=== PATIENT | female | born 1955 | race Caucasian/White ===

== ENCOUNTER 2017-07-31 10:13 | Emergency (ER) | payer OTHER ==
[~2017-07-31] VITALS: Ht 152.4 cm; Wt 111.1 kg
[2017-07-31 11:04] LABS: EOSINOPHIL (%) 0 % (0-5); HEMATOCRIT 38.8 % (36.0-46.0); IMMATURE GRANULOCYTE (%) 0.4 % (0.0-0.7); INSTRUMENT ABS NEUTROPHIL CT 3.8 K/uL; MCHC 32.2 G/DL (30.0-36.0); MCV 99.2 FL (83-99); MEAN PLAT.VOLUME 10.5 uM^3 (9.5-12.4); MONOCYTE (%) 10.5 % (3-12); MONOCYTE COUNT 0.6 K/uL (0-0.8); NEUTROPHIL (%) 69.6 % (45-76); NEUTROPHIL COUNT 3.8 K/uL (1.8-6.4); PLATELET COUNT 134 K/uL (156-360); RBC DIS.WIDTH-CV 13.3 % (11.8-14.6); RBC DIS.WIDTH-SD 49.1 % (39-53); RED BLOOD COUNT 3.91 M/uL (3.80-5.20); WHITE BLOOD COUNT 5.4 K/uL (4.1-10.2)
[2017-07-31 11:17] LABS: CHLORIDE 106 mEq/L (99-109); POTASSIUM 4.1 mEq/L (3.7-5.4); SODIUM 142 mEq/L (136-147)
[2017-07-31 11:19] LABS: GLUCOSE 77 mg/dL (70-99); PROTHROMBIN TIME 11.3 SEC (10.2-12.9)
[2017-07-31 11:20] LABS: ANION GAP 7 MEQ/L (2-14)
[2017-07-31 11:22] LABS: GFR ESTIMATE (CALCULATED) > 59 mL/min/; PTT 25.7 SEC (25-37)
[2017-07-31 11:23] LABS: UREA NITROGEN (BUN) 18 mg/dL (9-23)
[2017-07-31 11:25] LABS: TROP-I INTERPRETATION NEGATIVE; TROPONIN-I < 0.01 ng/mL (0.0-0.30)
[2017-07-31 13:35] LABS: TROP-I INTERPRETATION NEGATIVE; TROPONIN-I < 0.01 ng/mL (0.0-0.30)
[2017-07-31 14:32] VITALS: BP 126/81
== END 2017-07-31 14:32 | disposition home or self-care (01) ==
LOC: EME 10:13
PROVIDERS: Emergency Medicine
DX: G89.18 Other acute postprocedural pain (principal); R07.89 Other chest pain; Z86.711 Personal history of pulmonary embolism; I10 Essential (primary) hypertension; F41.9 Anxiety disorder, unspecified; F32.9 Major depressive disorder, single episode, unspecified; Z88.5 Allergy status to narcotic agent; Z88.8 Allergy status to other drugs, medicaments and biological substances
CPT/HCPCS: 71010; 71275; 80048; 84484; 85025; 85610; 85730; 93005; 99281; 99284

== ENCOUNTER 2018-02-05 15:35 | Inpatient (IN) | payer BC, OTHER ==
[~2018-02-05] VITALS: Ht 152.4 cm; Wt 113.0 kg
[2018-02-05 16:51] LABS: BASOPHIL COUNT 0.1 K/uL (0-0.1); EOSINOPHIL (%) 0 % (0-5); HEMATOCRIT 45.2 % (36.0-46.0); HEMOGLOBIN 15.2 G/DL (11.9-15.5); IMMATURE GRANULOCYTE (%) 0.1 % (0.0-0.7); LYMPHOCYTE (%) 16.5 % (15-42); LYMPHOCYTE COUNT 1.2 K/uL (1.0-2.8); MCH 32.7 PG (29.0-34.0); MCHC 33.6 G/DL (30.0-36.0); MCV 97.2 FL (83-99); MONOCYTE (%) 7.8 % (3-12); MONOCYTE COUNT 0.6 K/uL (0-0.8); NEUTROPHIL (%) 74.6 % (45-76); NEUTROPHIL COUNT 5.3 K/uL (1.8-6.4); PLATELET COUNT 125 K/uL (156-360); RBC DIS.WIDTH-CV 12.8 % (11.8-14.6); RBC DIS.WIDTH-SD 45.4 % (39-53); RED BLOOD COUNT 4.65 M/uL (3.80-5.20); WHITE BLOOD COUNT 7.2 K/uL (4.1-10.2)
[2018-02-05 16:59] LABS: ALBUMIN 3.5 g/dL (3.2-4.8); CHLORIDE 108 mEq/L (99-109); SODIUM 144 mEq/L (136-147)
[2018-02-05 17:02] LABS: GLUCOSE 90 mg/dL (70-99); TOTAL PROTEIN 6.5 g/dL (6.4-8.3)
[2018-02-05 17:04] LABS: TOTAL BILIRUBIN 0.6 mg/dL (0.0-1.0)
[2018-02-05 17:05] LABS: ALKALINE PHOSPHATASE 106 IU/L (3-129); CREATININE 0.9 mg/dL (0.6-1.3); GFR ESTIMATE (CALCULATED) > 59 mL/min/
[2018-02-05 17:06] LABS: UREA NITROGEN (BUN) 13 mg/dL (9-23)
[2018-02-05 17:07] LABS: AST (GOT) 20 IU/L (2-34)
[2018-02-05 17:08] LABS: ALT (GPT) 11 IU/L (3-49)
[2018-02-05 17:11] LABS: TROP-I INTERPRETATION NEGATIVE; TROPONIN-I 0.01 ng/mL (0.0-0.30)
[2018-02-05] MEDS ORDERED: MOTRIN800 MG PO (18:52)
[2018-02-05] MEDS ORDERED: LIPITOR10 MG PO (18:53)
[2018-02-05] MEDS ORDERED: PROZAC10 MG PO (18:53)
[2018-02-05] MEDS ORDERED: VALIUM10 MG PO (18:53)
[2018-02-05] MEDS ORDERED: LASIX40 MG PO (18:53)
[2018-02-05] MEDS ORDERED: VITAMIN D2000 UNIT PO (18:54)
[2018-02-05] MEDS ORDERED: DICLOFENAC POTA50 MG PO (18:54)
[2018-02-05] MEDS ORDERED: VITAMIN B-12250 MCG PO (18:54)
[2018-02-05] MEDS ORDERED: BENADRYL50 MG PO (18:56)
[2018-02-05] MEDS ORDERED: CENTRUM SILVER1 EAC4 PO (18:56)
[2018-02-05] MEDS ORDERED: SOLARCAINE COO127 GM TP (18:57)
[2018-02-05] MEDS ORDERED: NIGHT TIME COL355 ML PO (18:58)
[2018-02-05 19:02] LABS: PTT 26.7 SEC (25-37)
[2018-02-06 00:10] VITALS: BP 125/79
[2018-02-06 01:06] LABS: TROP-I INTERPRETATION NEGATIVE; TROPONIN-I < 0.01 ng/mL (0.0-0.30)
[2018-02-06 03:57] VITALS: BP 120/66
[2018-02-06 06:54] LABS: HEMATOCRIT 43.6 % (36.0-46.0); HEMOGLOBIN 14.3 G/DL (11.9-15.5); MCHC 32.8 G/DL (30.0-36.0); MCV 97.5 FL (83-99); PLATELET COUNT 129 K/uL (156-360); RBC DIS.WIDTH-CV 12.9 % (11.8-14.6); RBC DIS.WIDTH-SD 46.5 % (39-53); RED BLOOD COUNT 4.47 M/uL (3.80-5.20); WHITE BLOOD COUNT 7.2 K/uL (4.1-10.2)
[2018-02-06 07:15] LABS: TROP-I INTERPRETATION NEGATIVE; TROPONIN-I < 0.01 ng/mL (0.0-0.30)
[2018-02-06 07:25] VITALS: BP 123/78
[2018-02-06 13:00] VITALS: BP 132/89
[2018-02-06 16:48] VITALS: BP 125/66
[2018-02-06 20:00] VITALS: BP 118/72
[2018-02-07 00:11] VITALS: BP 114/71
[2018-02-07 04:19] VITALS: BP 114/73
[2018-02-07 05:20] LABS: BASOPHIL COUNT 0.1 K/uL (0-0.1); EOSINOPHIL (%) 0 % (0-5); HEMATOCRIT 42.1 % (36.0-46.0); HEMOGLOBIN 13.7 G/DL (11.9-15.5); IMMATURE GRANULOCYTE (%) 0.6 % (0.0-0.7); LYMPHOCYTE (%) 25.1 % (15-42); LYMPHOCYTE COUNT 1.8 K/uL (1.0-2.8); MCH 31.4 PG (29.0-34.0); MCHC 32.5 G/DL (30.0-36.0); MCV 96.3 FL (83-99); MONOCYTE (%) 9.4 % (3-12); MONOCYTE COUNT 0.7 K/uL (0-0.8); NEUTROPHIL (%) 63.9 % (45-76); NEUTROPHIL COUNT 4.6 K/uL (1.8-6.4); PLATELET COUNT 130 K/uL (156-360); RBC DIS.WIDTH-CV 12.9 % (11.8-14.6); RED BLOOD COUNT 4.37 M/uL (3.80-5.20); WHITE BLOOD COUNT 7.1 K/uL (4.1-10.2)
[2018-02-07 07:30] VITALS: BP 120/77
[2018-02-07 08:21] LABS: CHLORIDE 105 MEQ/L (99-109); CREATININE 0.9 MG/DL (0.6-1.3); GFR ESTIMATE (CALCULATED) > 59 mL/min/; GLUCOSE 97 mg/dL (70-99); SODIUM 140 MEQ/L (136-147); UREA NITROGEN (BUN) 19 mg/dL (9-23)
[2018-02-07 08:23] LABS: POTASSIUM 3.8 MEQ/L (3.7-5.4)
[2018-02-07 12:17] VITALS: BP 123/66
[2018-02-07 16:02] VITALS: BP 120/89
[2018-02-07 19:53] VITALS: BP 112/65
[2018-02-08 00:57] VITALS: BP 107/68
[2018-02-08 04:46] VITALS: BP 118/72
[2018-02-08 09:00] VITALS: BP 124/85
[2018-02-08] MEDS ORDERED: ELIQUIS5 MG PO ×2 (10:58→11:00)
[2018-02-08 11:54] VITALS: BP 108/79
== END 2018-02-08 12:25 | disposition home or self-care (01) | DRG 176 ==
LOC: EME 15:35 → EDOF 21:17 → ENRESERV 21:20 → 4SOUTH 22:54
PROVIDERS: Emergency Medicine; Hospitalist
DX: I26.99 Other pulmonary embolism without acute cor pulmonale (principal); I82.433 Acute embolism and thrombosis of popliteal vein, bilateral; R09.02 Hypoxemia; E66.01 Morbid (severe) obesity due to excess calories; Z68.42 Body mass index [BMI] 45.0-49.9, adult; I10 Essential (primary) hypertension; K21.9 Gastro-esophageal reflux disease without esophagitis; F32.9 Major depressive disorder, single episode, unspecified; F41.9 Anxiety disorder, unspecified; M19.90 Unspecified osteoarthritis, unspecified site; Z86.711 Personal history of pulmonary embolism
CPT/HCPCS: 71046; 71275; 80048; 80053; 83880; 84484; 85025; 85027; 85379; 85610; 85730; 93005; 93306; 93970; 99281; 99285

== ENCOUNTER 2018-02-11 15:38 | Emergency (ER) | payer BC ==
[~2018-02-11] VITALS: Ht 152.4 cm; Wt 109.7 kg
[~2018-02-11 15:38] MED LIST: BENADRYL50 MG PO; CENTRUM SILVER1 EAC4 PO; DICLOFENAC POTA50 MG PO; ELIQUIS5 MG PO; LASIX40 MG PO; LIPITOR10 MG PO; MOTRIN800 MG PO; NIGHT TIME COL355 ML PO; PROZAC10 MG PO; SOLARCAINE COO127 GM TP; VALIUM10 MG PO; VITAMIN B-12250 MCG PO; VITAMIN D2000 UNIT PO
[2018-02-11 17:16] LABS: HEMATOCRIT 45.8 % (36.0-46.0); HEMOGLOBIN 15.5 G/DL (11.9-15.5); MCH 32.7 PG (29.0-34.0); MCHC 33.8 G/DL (30.0-36.0); MCV 96.6 FL (83-99); PLATELET COUNT 167 K/uL (156-360); RBC DIS.WIDTH-CV 12.9 % (11.8-14.6); RBC DIS.WIDTH-SD 46.1 % (39-53); RED BLOOD COUNT 4.74 M/uL (3.80-5.20); WHITE BLOOD COUNT 6.9 K/uL (4.1-10.2)
[2018-02-11 17:28] LABS: CHLORIDE 108 mEq/L (99-109); SODIUM 143 mEq/L (136-147)
[2018-02-11 17:30] LABS: GLUCOSE 85 mg/dL (70-99); POTASSIUM 4.6 mEq/L (3.7-5.4)
[2018-02-11 17:34] LABS: CREATININE 0.9 mg/dL (0.6-1.3); GFR ESTIMATE (CALCULATED) > 59 mL/min/
[2018-02-11 17:37] LABS: UREA NITROGEN (BUN) 29 mg/dL (9-23)
[2018-02-11 20:30] VITALS: BP 125/100
== END 2018-02-11 20:32 | disposition home or self-care (01) ==
LOC: EME 15:38
DX: R07.81 Pleurodynia (principal); Z86.711 Personal history of pulmonary embolism; Z86.718 Personal history of other venous thrombosis and embolism; Z79.01 Long term (current) use of anticoagulants; I10 Essential (primary) hypertension; F32.9 Major depressive disorder, single episode, unspecified; F41.9 Anxiety disorder, unspecified; Z88.5 Allergy status to narcotic agent; Z88.8 Allergy status to other drugs, medicaments and biological substances
CPT/HCPCS: 71046; 71275; 80048; 85027; 99281; 99284